=== PATIENT | male | born 1970 | race Two or more races ===

== ENCOUNTER 2017-04-10 18:48 | Emergency (ER) | payer BC ==
[~2017-04-10] VITALS: Ht 167.6 cm; Wt 74.8 kg
[2017-04-10] MEDS ORDERED: SODIUM CHLORIDE 0.9% 1,000 ML IVB ONE (19:35)
[2017-04-10] MEDS ORDERED: ONDANSETRON HCL 4 MG/2 ML VIAL IV ONE ×3 (19:45→23:45)
[2017-04-10] MEDS ORDERED: MORPHINE SULFATE 4 MG/ML SYRG IV ONE ×2 (19:45→22:15)
[2017-04-10 20:03] LABS: Hemoglobin 15.4 g/dL (13.5-17.5); Mean Corpuscular Hemoglobin 30.3 pg (28.0-32.0); Mean Corpuscular Hgb Conc. 33.5 g/dL (32.0-36.0); Mean Corpuscular Volume 90.5 fL (80.0-100.0); Mean Platelet Volume 8.5 fL (7.4-10.4); Platelet Count (auto) 298 10^3/uL (140-450); Red Cell Distribution Width 12.9 % (11.6-16.0); SUSPECT VIEW TRANSMISSION; White Blood Cell 29.1 10^3/uL (4.4-10.8)
[2017-04-10 20:09] LABS: Metamyelocytes % 0; Myelocytes % 0; Promyelocytes % 0; Reactive Lymphocytes 0
[2017-04-10 20:30] LABS: Albumin 3.8 g/dL (3.4-5.0); Alkaline Phosphatase 80 U/L (45-117); Anion Gap 15 (5-15); Aspartate Aminotransferase 105 U/L (15-37); BUN/Creatinine Ratio 19.1; Bilirubin, Total 0.4 mg/dL (0.2-1.0); Blood Urea Nitrogen 21 mg/dL (7-18); Calcium 8.9 mg/dL (8.5-10.1); Carbon Dioxide 18 mmol/L (21-32); Chloride 106 mmol/L (98-107); GFR African American 92 mL/min; GFR Non-African American 76 mL/min; Glucose 115 mg/dL (74-106); Sodium 139 mmol/L (136-145); Total Protein 7.3 g/dL (6.4-8.2)
[2017-04-10 20:42] LABS: B-Type Natriuretic Peptide 1.06 pg/mL (0-100)
[2017-04-10] MEDS ORDERED: IOHEXOL 300 MG/ML 100ML BOTTLE IJ ONE (20:42)
[2017-04-10 20:46] LABS: Platelet Estimate Adequate
[2017-04-10 20:47] LABS: RBC Morphology Normal
[2017-04-10 20:49] LABS: Temperature: 23.3 C (20.0-25.0)
[2017-04-10] MEDS ORDERED: SODIUM CHLORIDE 0.9% 500 ML IV ONE (21:15)
[2017-04-10 23:30] VITALS: BP 115/53
[2017-04-10] MEDS ORDERED: HYDROmorphone HCL 2 MG/ML VL IV ONE (23:45)
[2017-04-10 23:56] LABS: INR 1.01 (0.9-1.15); Partial Thromboplastin Time 23.3 sec (22.64-33.71); Prothrombin Time 10.9 sec (9.37-12.3)
== END 2017-04-11 | disposition short-term general hospital (02) ==
LOC: EDBD 18:48 → ER 19:00
DX: S42.021A Displaced fracture of shaft of right clavicle, initial encounter for closed fracture (principal); S27.0XXA Traumatic pneumothorax, initial encounter; S32.424A Nondisplaced fracture of posterior wall of right acetabulum, initial encounter for closed fracture; S36.030A Superficial (capsular) laceration of spleen, initial encounter; S36.899A Unspecified injury of other intra-abdominal organs, initial encounter; S27.329A Contusion of lung, unspecified, initial encounter; F17.210 Nicotine dependence, cigarettes, uncomplicated; V23.4XXA Motorcycle driver injured in collision with car, pick-up truck or van in traffic accident, initial encounter; Y93.89 Activity, other specified; Y99.8 Other external cause status; Y92.410 Unspecified street and highway as the place of occurrence of the external cause
CPT/HCPCS: 36415; 71010; 71260; 73000; 74177; 80053; 83880; 84484; 85007; 85027; 85610; 85730; 86850; 86900; 86901; 96361; 96374; 96375; 96376; 99291; J1170; J2270; J2405; Q9967